=== PATIENT | male | born 1985 | race Caucasian/White ===

== ENCOUNTER 2023-04-26 09:17 | Outpatient (CLI) | payer OTHER, SELFPAY ==
--- NOTE | 2023-04-26 09:43 | XR_ITS ---
WS: [id number] Exam: XR abdomen 1V* [id number] Date/Time of Exam: 04/26/2023 9:50 AM Reason For Exam: LLQ PAIN No bowel obstruction or pneumoperitoneum. No sign of organ enlargement. Bony structures are intact. T here are 2 calcifications in the LEFT pelvis that are nonspecific. IMPRESSION: 1. No acute abdominal process.
== END 2023-04-26 09:18 | disposition home or self-care (01) ==
PROVIDERS: PCP Nurse Practitioner; Visit Provider Nurse Practitioner
DX: R10.32 Left lower quadrant pain (principal)
CPT/HCPCS: 74018